=== PATIENT | male | born 1980 | race African-American/Black ===

== ENCOUNTER 2017-09-28 15:00 | Emergency (ER) | payer MEDICAID ==
[~2017-09-28] VITALS: Ht 167.6 cm; Wt 62.4 kg
[2017-09-28] MEDS ORDERED: CEFTRIAXONE 250 MG IM ONE (16:00)
[2017-09-28] MEDS ORDERED: AZITHROMYCIN 500 MG TABLET PO ONE (16:00)
[2017-09-28] MEDS ORDERED: CEFTRIAXONE 250 MG ONE (16:15)
[2017-09-28] MEDS ORDERED: AZITHROMYCIN 500 MG TABLET ONE (16:15)
[2017-09-28] MEDS ORDERED: LIDOCAINE-MPF 1%, 2ML ONE (16:15)
[2017-09-28 16:30] LABS: MICROSCOPIC NOT IND
[2017-09-28 16:31] LABS: CULTURE INDICATED? NO
[2017-09-28 17:26] VITALS: BP 136/88
== END 2017-09-28 17:28 | disposition home or self-care (01) ==
LOC: ED 17:00
DX: Z00.01 Encounter for general adult medical examination with abnormal findings (principal)
CPT/HCPCS: 81003; 87491; 87591; 96372; 99284; J0696

== ENCOUNTER 2017-11-22 05:20 | Emergency (ER) | payer MEDICAID ==
[~2017-11-22] VITALS: Ht 167.6 cm; Wt 63.7 kg
[2017-11-22 05:28] VITALS: BP 137/84
[2017-11-22] MEDS ORDERED: HYDROcodone/APAP 5/325 TABLET PO ONE (06:00)
[2017-11-22] MEDS ORDERED: HYDROcodone/APAP 5/325 TABLET ONE (06:21)
== END 2017-11-22 06:26 | disposition home or self-care (01) ==
LOC: ED 06:00
DX: K08.89 Other specified disorders of teeth and supporting structures (principal)
CPT/HCPCS: 99283